=== PATIENT | male | born 1960 | race Caucasian/White ===

== ENCOUNTER → 2018-07-31 | Outpatient (CLI) | payer MEDICARE | END | disposition home or self-care (01) | LOC: LAB 11:36 | DX: Z01.818 Encounter for other preprocedural examination (principal); M17.12 Unilateral primary osteoarthritis, left knee; J84.112 Idiopathic pulmonary fibrosis; M25.562 Pain in left knee ==

== ENCOUNTER → 2018-08-18 | Outpatient (CLI) | payer MEDICARE | LOC: RAD 11:00 | DX: Z13.820 Encounter for screening for osteoporosis (principal); J84.10 Pulmonary fibrosis, unspecified ==

== ENCOUNTER 2020-09-09 14:50 | Emergency (ER) | payer MEDICARE ==
[~2020-09-09] VITALS: Ht 193 cm; Wt 121.6 kg
[2020-09-09] MEDS ORDERED: NORCO 5-325 TA1 EACH PO (16:22)
[2020-09-09] MEDS ORDERED: CEPHALEXIN500 M1 PO (16:22)
[2020-09-11] MEDS ORDERED: CALCIUM ACETAT667 M2 PO (11:22)
[2020-09-11] MEDS ORDERED: FUROSEMIDE40 MG PO (11:23)
[2020-09-11] MEDS ORDERED: GABAPENTIN100 M2 PO (11:23)
[2020-09-11] MEDS ORDERED: PANTOPRAZOLE SO40 MG PO (11:23)
[2020-09-11] MEDS ORDERED: PREDNISONE5 MG PO (11:24)
[2020-09-11] MEDS ORDERED: ROPINIROLE HYD0.5 MG PO (11:24)
[2020-09-11] MEDS ORDERED: TACROLIMUS1 M1 PO (11:24)
[2020-09-11] MEDS ORDERED: MAGNESIUM OXID400 MG PO (11:24)
[2020-09-11] MEDS ORDERED: BACTRIM 400-801 EACH PO (11:25)
[2020-09-11] MEDS ORDERED: MIRTAZAPINE15 M2 PO (11:25)
[2020-09-11] MEDS ORDERED: ACYCLOVIR200 MG PO (11:27)
[2020-09-11] MEDS ORDERED: TRAZODONE50 MG PO (11:27)
[2020-09-11] MEDS ORDERED: DULOXETINE HCL20 MG PO (11:27)
[2020-09-11] MEDS ORDERED: LEVOTHYROXINE200 MC2 PO (11:27)
[2020-09-11] MEDS ORDERED: RENVELA800 MG PO (11:28)
[2020-09-11] MEDS ORDERED: FLUOXETINE HCL10 MG PO (11:28)
[2020-09-11] MEDS ORDERED: BUMETANIDE2 MG PO (11:28)
[2020-09-12] MEDS ORDERED: PERCOCET 5-3251 EACH PO (09:55)
== END 2020-09-09 16:42 | disposition home or self-care (01) ==
LOC: ED 14:50
DX: S66.822A Laceration of other specified muscles, fascia and tendons at wrist and hand level, left hand, initial encounter (principal); N18.30 Chronic kidney disease, stage 3 unspecified; Z99.2 Dependence on renal dialysis; W31.89XA Contact with other specified machinery, initial encounter; Y93.89 Activity, other specified; Y92.89 Other specified places as the place of occurrence of the external cause; Y99.8 Other external cause status

== ENCOUNTER → 2020-09-12 | Day surgery (SDC) | payer MEDICARE ==
[2020-09-11 11:45] VITALS: BP 132/65
[2020-09-11 12:58] LABS: CREATININE 6.03 mg/dL (0.70-1.30); POTASSIUM 4.7 mmol/L (3.5-5.1)
[~2020-09-12] VITALS: Ht 193 cm; Wt 117.9 kg
[2020-09-12] VITALS (7 sets, daily range): BP systolic 111–167; BP diastolic 46–96
[~2020-09-12] MED LIST: ACYCLOVIR200 MG PO; BACTRIM 400-801 EACH PO; BUMETANIDE2 MG PO; CALCIUM ACETAT667 M2 PO; CEPHALEXIN500 M1 PO; DULOXETINE HCL20 MG PO; FLUOXETINE HCL10 MG PO; FUROSEMIDE40 MG PO; GABAPENTIN100 M2 PO; LEVOTHYROXINE200 MC2 PO; MAGNESIUM OXID400 MG PO; MIRTAZAPINE15 M2 PO; NORCO 5-325 TA1 EACH PO; PANTOPRAZOLE SO40 MG PO; PERCOCET 5-3251 EACH PO; PREDNISONE5 MG PO; RENVELA800 MG PO; ROPINIROLE HYD0.5 MG PO; TACROLIMUS1 M1 PO; TRAZODONE50 MG PO
[2020-09-12 08:28] LABS: MEAN CELL VOLUME 111.8 fl (80.0-94.0); MEAN CORPUSCULAR HGB 34.5 pg (27.0-31.0); MEAN CORPUSCULAR HGB CONC 30.9 g/dl (33.0-37.0); MEAN PLATELET VOLUME 8.7 fl (9.6-12.3); PLATELET COUNT AUTOMATED 81 10*3/uL (130-400); RED BLOOD COUNT 3.13 10*6/uL (4.50-5.90); WHITE BLOOD COUNT 6.3 10*3/uL (4.8-10.8)
[2020-09-12 08:39] LABS: ACT PARTIAL THROMBO TIME 27.9 SECONDS (20.0-32.1)
[2020-09-12 08:51] LABS: OVALOCYTES FEW; PLATELET SUFFICIENCY LOW (NORMAL); POLYCHROMASIA SLIGHT; TOTAL CELLS COUNTED 100 #CELLS
== END ==
LOC: SDC 09-11 11:00
PROVIDERS: Nurse Anesthetist, Certified Registered; ATTEND Orthopaedic Surgery
DX: S66.321A Laceration of extensor muscle, fascia and tendon of left index finger at wrist and hand level, initial encounter (principal); Z94.1 Heart transplant status; Z94.2 Lung transplant status; I25.10 Atherosclerotic heart disease of native coronary artery without angina pectoris; I10 Essential (primary) hypertension; Z79.01 Long term (current) use of anticoagulants; Z79.899 Other long term (current) drug therapy; Z86.73 Personal history of transient ischemic attack (TIA), and cerebral infarction without residual deficits; X58.XXXA Exposure to other specified factors, initial encounter; Y93.89 Activity, other specified; Y92.89 Other specified places as the place of occurrence of the external cause; Y99.8 Other external cause status

== ENCOUNTER → 2020-10-18 | Outpatient (CLI) | payer MEDICARE | END | disposition home or self-care (01) | LOC: CARD 11:23 | PROVIDERS: ATTEND Orthopaedic Surgery | DX: T81.31XA Disruption of external operation (surgical) wound, not elsewhere classified, initial encounter (principal) ==

== ENCOUNTER → 2020-10-19 | Day surgery (SDC) | payer MEDICARE ==
[~2020-10-19] VITALS: Ht 193 cm; Wt 117.9 kg
[2020-10-19 09:42] LABS: CREATININE 7.3 mg/dL (0.70-1.30); POTASSIUM 4.9 mmol/L (3.5-5.1)
[2020-10-19 09:48] VITALS: BP 119/75
[2020-10-19 12:00] VITALS: BP 138/79
[2020-10-19 12:15] VITALS: BP 130/76
[2020-10-19 12:30] VITALS: BP 132/70
[2020-10-19 12:45] VITALS: BP 122/71
== END ==
LOC: SDC 10-18 12:30
PROVIDERS: Nurse Anesthetist, Certified Registered; ATTEND Orthopaedic Surgery
DX: S66.321A Laceration of extensor muscle, fascia and tendon of left index finger at wrist and hand level, initial encounter (principal); T81.31XA Disruption of external operation (surgical) wound, not elsewhere classified, initial encounter; Z98.85 Transplanted organ removal status; I25.10 Atherosclerotic heart disease of native coronary artery without angina pectoris; I12.0 Hypertensive chronic kidney disease with stage 5 chronic kidney disease or end stage renal disease; Z86.73 Personal history of transient ischemic attack (TIA), and cerebral infarction without residual deficits; N18.6 End stage renal disease; Z79.899 Other long term (current) drug therapy; W22.8XXA Striking against or struck by other objects, initial encounter; Y93.89 Activity, other specified; Y92.89 Other specified places as the place of occurrence of the external cause; Y99.8 Other external cause status